=== PATIENT | male | born 1965 | race African-American/Black ===

== ENCOUNTER 2016-12-19 16:29 | Emergency (ER) | payer BC ==
[~2016-12-19] VITALS: Ht 190.5 cm; Wt 95.0 kg
[2016-12-19] MEDS ORDERED: ONDANSETRON HCL 4MG/2ML VIAL IV STA (18:46)
[2016-12-19] MEDS ORDERED: MAGNESIUM/ALUMINUM HYDROXIDE/SIMETHICONE 30ML UDC PO STA (18:46)
[2016-12-19] MEDS ORDERED: FAMOTIDINE 20MG/2ML VIAL IV ONE (19:00)
[2016-12-19 19:02] LABS: BASOPHILS % 0.4 % (0.0-2.0); EOSINOPHILS % 1.9 % (0.0-5.0); HEMATOCRIT. 40.6 % (42.0-52.0); HEMOGLOBIN. 14.1 g/dL (14.0-18.0); LYMPHOCYTES % 21.4 % (20.0-50.0); MEAN CORPUSCULAR HEMOGLOBIN 31.8 pg (28.0-32.0); MEAN CORPUSCULAR VOLUME 91.4 fL (80.0-94.0); MEAN PLATELET VOLUME 7.8 fl (7.4-10.4); MONOCYTES % 5.9 % (2.0-8.0); NEUTROPHILS % 70.4 % (40.0-76.0); PLATELET 164 x1000/uL (130-400); RED BLOOD CELL COUNT 4.44 mill/uL (4.7-6.1); RED CELL DISTRIBUTION WIDTH 13.6 % (11.6-14.6)
[2016-12-19 19:13] LABS: D-DIMER 0.26 mg/L FEU (<0.50); PARTIAL THROMBOPLASTIN TIME 26.8 sec (24.0-34.0); PROTHROMBIN TIME 10.5 sec
[2016-12-19 19:19] LABS: CARBON DIOXIDE 29 mEq/L (21-32); CHLORIDE 107 mEq/L (98-107); TROPONIN I 0.06 ng/mL (0.00-0.04)
[2016-12-19 21:00] VITALS: BP 130/94
== END 2016-12-19 21:23 | disposition home or self-care (01) ==
LOC: ER 16:42
DX: R07.89 Other chest pain (principal)
CPT/HCPCS: 36415; 71010; 80053; 83690; 83880; 84443; 84484; 85025; 85379; 85610; 85730; 93005; 96374; 96375; 99285; J2405; J3490; Z7610